=== PATIENT | male | born 1960 | race African-American/Black ===

== ENCOUNTER 2021-01-03 08:53 | Day surgery (SDC) | payer OTHER, SELFPAY ==
[~2021-01-03] VITALS: Ht 180.3 cm; Wt 96.2 kg
[2021-01-03] MEDS ORDERED: BUPIVACAINE-MPF/EPI 0.5% 30 ML VIAL INJ ONE ×2 (10:05→12:36)
[2021-01-03] MEDS ORDERED: PROPOFOL 200 MG/20 ML VIAL IV ONE (13:00)
[2021-01-03] MEDS ORDERED: KETOROLAC 30 MG/ML VIAL ONE (13:00)
[2021-01-03] MEDS ORDERED: SEVOFLURANE 250 ML BTL INH ONE (13:00)
[2021-01-03] MEDS ORDERED: MIDAZOLAM 2 MG/2 ML VIAL ONE (13:00)
[2021-01-03] MEDS ORDERED: fentaNYL citrate 0.05 MG/ML VIAL ONE (13:00)
[2021-01-03] MEDS ORDERED: DEXAMETHASONE 4 MG/ML VIAL ONE (13:00)
[2021-01-03] MEDS ORDERED: MEPERIDINE 25 MG/ML SYR ONE (13:00)
[2021-01-03] MEDS ORDERED: ONDANSETRON 4 MG/2 ML VIAL ONE (13:00)
[2021-01-03] MEDS ORDERED: ONDANSETRON 4 MG/2 ML VIAL IVP PRN (13:50)
[2021-01-03] MEDS ORDERED: HYDROmorphone 1 MG/ML AMP IVP PRN ×2 (13:50→14:25)
[2021-01-03] MEDS ORDERED: MEPERIDINE 25 MG/ML SYR IVP PRN (13:50)
[2021-01-03] MEDS ORDERED: LACTATED RINGERS 1,000 ML IV SCH (13:50)
[2021-01-03] MEDS ORDERED: diphenhydrAMINE 50 MG/ML VIAL IVP PRN (13:50)
[2021-01-03] MEDS ORDERED: MORPHINE SULFATE 4 MG/ML SYR IV PRN (14:25)
[2021-01-03] MEDS ORDERED: ONDANSETRON 4 MG/2 ML VIAL IV PRN (14:25)
[2021-01-03] MEDS ORDERED: HYDROcodone/APAP 5/325 MG 1 TAB TAB PO PRN (14:25)
[2021-01-03] MEDS ORDERED: MORPHINE SULFATE 2 MG/ML SYR IVP PRN (14:25)
== END 2021-01-03 15:30 | disposition home or self-care (01) ==
LOC: MDS 08:53 → MMU 08:53 → MDS 15:30
PROVIDERS: ATTEND Surgery
DX: D17.0 Benign lipomatous neoplasm of skin and subcutaneous tissue of head, face and neck (principal); I10 Essential (primary) hypertension; E78.5 Hyperlipidemia, unspecified; Z79.899 Other long term (current) drug therapy; Z20.828 Contact with and (suspected) exposure to other viral communicable diseases
CPT/HCPCS: 21012; 71045; J0690; J1100; J1885; J2175; J2250; J2405; J2704; J3010; J3490; J7060; J7120; U0003